=== PATIENT | male | born 1955 | race Caucasian/White ===

== ENCOUNTER 2017-03-30 01:19 | Emergency (ER) | payer OTHER ==
[~2017-03-30] VITALS: Ht 165.1 cm; Wt 80.5 kg
[2017-03-30 02:48] LABS: HEMATOCRIT 44.9 % (38.0-50.0); MCH 31.3 PG (29.0-34.0); MCHC 33.4 G/DL (30.0-36.0); MCV 93.5 FL (86-99); MEAN PLAT.VOLUME 10.1 uM^3 (9.0-12.4); PLATELET COUNT 275 K/uL (156-360); RBC DIS.WIDTH-CV 12.7 % (11.8-14.6); RBC DIS.WIDTH-SD 43.7 % (39-53); WHITE BLOOD COUNT 9.2 K/uL (4.1-10.2)
[2017-03-30 02:57] LABS: CHLORIDE 99 mEq/L (99-109); POTASSIUM 3.3 mEq/L (3.7-5.4); SODIUM 139 mEq/L (136-147)
[2017-03-30 02:59] LABS: GLUCOSE 126 mg/dL (70-99)
[2017-03-30 03:00] LABS: ANION GAP 12 MEQ/L (2-14)
[2017-03-30 03:01] LABS: TOTAL BILIRUBIN 0.6 mg/dL (0.0-1.0)
[2017-03-30 03:02] LABS: SERUM ETHYL ALCOHOL < 10 mg/dL
[2017-03-30 03:03] LABS: ALKALINE PHOSPHATASE 72 IU/L (3-129); GFR ESTIMATE (CALCULATED) > 59 mL/min/
[2017-03-30 03:04] LABS: UREA NITROGEN (BUN) 12 mg/dL (9-23)
[2017-03-30 03:06] LABS: LIPASE 17 U/L (1.0-51.0)
[2017-03-30 03:56] LABS: ADD MIUA? YES; BILIRUBIN NEGATIVE; BLOOD SMALL; COLOR YELLOW ((YELLOW)); GLUCOSE (STRIP) NEGATIVE; KETONES NEGATIVE; LEUKOCYTES NEGATIVE; NITRITE NEGATIVE; PROTEIN (STRIP) NEGATIVE; SPECIFIC GRAVITY 1.019 (1.000-1.030); UROBILINOGEN 0.2 MG/DL (0.2-1.0)
[2017-03-30 04:14] LABS: BACTERIA RARE /HPF; EPITHELIAL CELLS RARE /HPF; MUCUS 3+ /LPF; RED BLOOD CELLS 0-5 /HPF (0-5); UCUL ADDED? YES
[2017-03-30] MEDS ORDERED: BACTRIM,SEPT1 TABLET PO ×2 (04:33→10:55)
[2017-03-30 05:02] VITALS: BP 158/96
== END 2017-03-30 05:03 | disposition home or self-care (01) ==
LOC: EME 01:19
PROVIDERS: Emergency Medicine
DX: N39.0 Urinary tract infection, site not specified (principal); Z87.442 Personal history of urinary calculi; Z88.0 Allergy status to penicillin; F17.200 Nicotine dependence, unspecified, uncomplicated
CPT/HCPCS: 71020; 80053; 81003; 83690; 85027; 87086; 93005; 99281; 99285; G0480; J2405; J7030

== ENCOUNTER 2017-03-30 08:16 | Emergency (ER) | payer OTHER ==
[~2017-03-30] VITALS: Ht 165.1 cm; Wt 80.8 kg
[~2017-03-30 08:16] MED LIST: BACTRIM,SEPT1 TABLET PO
[2017-03-30 09:11] LABS: POINT-OF-CARE METER ID UU14100415
[2017-03-30 09:27] LABS: ADD MIUA? NO; BILIRUBIN NEGATIVE; BLOOD NEGATIVE; COLOR YELLOW ((YELLOW)); GLUCOSE (STRIP) NEGATIVE; KETONES NEGATIVE; LEUKOCYTES NEGATIVE; NITRITE NEGATIVE; PROTEIN (STRIP) NEGATIVE; SPECIFIC GRAVITY 1.017 (1.000-1.030); UCUL ADDED? NO; UROBILINOGEN 0.2 MG/DL (0.2-1.0)
[2017-03-30 09:39] LABS: ANION GAP 9 MEQ/L (2-14); CHLORIDE 102 MEQ/L (99-109); POTASSIUM 3.8 MEQ/L (3.7-5.4); SAMPLE HEMOLYSIS CHECK 0; SAMPLE ICTERIC CHECK 0; SAMPLE LIPEMIA CHECK 0; SODIUM 136 MEQ/L (136-147)
[2017-03-30 09:40] LABS: BASOPHIL COUNT 0.1 K/uL (0-0.1); EOSINOPHIL (%) 1.6 % (0-5); EOSINOPHIL COUNT 0.1 K/uL (0-0.3); HEMATOCRIT 43.3 % (38.0-50.0); IMMATURE GRANULOCYTE (%) 0.3 % (0.0-0.7); INSTRUMENT ABS NEUTROPHIL CT 5.4 K/uL; LYMPHOCYTE COUNT 1.6 K/uL (1.0-2.8); MCH 30.7 PG (29.0-34.0); MCV 92.9 FL (86-99); MEAN PLAT.VOLUME 10.1 uM^3 (9.0-12.4); MONOCYTE (%) 9.2 % (3-12); MONOCYTE COUNT 0.7 K/uL (0-0.8); NEUTROPHIL COUNT 5.4 K/uL (1.8-6.4); PLATELET COUNT 264 K/uL (156-360); RBC DIS.WIDTH-CV 12.8 % (11.8-14.6); RBC DIS.WIDTH-SD 43.8 % (39-53); RED BLOOD COUNT 4.66 M/uL (4.00-5.50)
[2017-03-30 09:44] LABS: GFR ESTIMATE (CALCULATED) > 59 mL/min/; GLUCOSE 155 mg/dL (70-99); UREA NITROGEN (BUN) 12 mg/dL (9-23)
[2017-03-30] MEDS ORDERED: BACTRIM,SEPT1 TABLET PO (10:55)
[2017-03-30 11:13] VITALS: BP 159/95
== END 2017-03-30 11:15 | disposition home or self-care (01) ==
LOC: EME 08:16
PROVIDERS: Emergency Medicine
DX: N39.0 Urinary tract infection, site not specified (principal); Z87.442 Personal history of urinary calculi; Z88.0 Allergy status to penicillin; F17.200 Nicotine dependence, unspecified, uncomplicated
CPT/HCPCS: 80048; 81003; 82948; 85025; 99281; 99284

== ENCOUNTER 2017-04-01 11:31 | Emergency (ER) | payer OTHER ==
[~2017-04-01] VITALS: Ht 165.1 cm; Wt 19.0 kg
[2017-04-01 13:03] LABS: ADD MIUA? NO; BILIRUBIN NEGATIVE; BLOOD NEGATIVE; COLOR YELLOW ((YELLOW)); GLUCOSE (STRIP) NEGATIVE; KETONES NEGATIVE; LEUKOCYTES NEGATIVE; NITRITE NEGATIVE; PROTEIN (STRIP) 30; SPECIFIC GRAVITY 1.018 (1.000-1.030); UCUL ADDED? NO; UROBILINOGEN 0.2 MG/DL (0.2-1.0)
[2017-04-01 13:15] LABS: HEMATOCRIT 44.2 % (38.0-50.0); MCH 30.9 PG (29.0-34.0); MCHC 33.3 G/DL (30.0-36.0); MCV 93.1 FL (86-99); PLATELET COUNT 272 K/uL (156-360); RBC DIS.WIDTH-CV 12.9 % (11.8-14.6); RBC DIS.WIDTH-SD 44.3 % (39-53); RED BLOOD COUNT 4.75 M/uL (4.00-5.50); WHITE BLOOD COUNT 7.3 K/uL (4.1-10.2)
[2017-04-01 13:24] LABS: CHLORIDE 104 mEq/L (99-109); SODIUM 142 mEq/L (136-147)
[2017-04-01 13:26] LABS: GLUCOSE 130 mg/dL (70-99)
[2017-04-01 13:27] LABS: ANION GAP 12 MEQ/L (2-14)
[2017-04-01 13:29] LABS: ALKALINE PHOSPHATASE 71 IU/L (3-129); TOTAL BILIRUBIN 0.4 mg/dL (0.0-1.0)
[2017-04-01 13:30] LABS: GFR ESTIMATE (CALCULATED) > 59 mL/min/
[2017-04-01 13:31] LABS: UREA NITROGEN (BUN) 13 mg/dL (9-23)
[2017-04-01 14:46] LABS: LIPASE 22 U/L (1.0-51.0)
[2017-04-01] MEDS ORDERED: ZOFRAN4 MG PO (16:31)
[2017-04-01 17:08] VITALS: BP 166/59
[2017-04-02] MEDS ORDERED: FLOMAX0.4 MG PO (06:44)
== END 2017-04-01 17:09 | disposition home or self-care (01) ==
LOC: EME 11:31
PROVIDERS: Physician Assistant
DX: R11.0 Nausea (principal); J44.9 Chronic obstructive pulmonary disease, unspecified; Z87.442 Personal history of urinary calculi; I10 Essential (primary) hypertension; F17.200 Nicotine dependence, unspecified, uncomplicated
CPT/HCPCS: 74022; 80053; 81003; 83605; 83690; 85027; 87040; 93005; 99281; 99284; J7030

== ENCOUNTER 2017-04-02 04:43 | Emergency (ER) | payer OTHER ==
[~2017-04-02] VITALS: Ht 165.1 cm; Wt 81.4 kg
[~2017-04-02 04:43] MED LIST changes: +ZOFRAN4 MG PO
[2017-04-02 05:34] LABS: CHLORIDE 99 mEq/L (99-109); POTASSIUM 3.3 mEq/L (3.7-5.4)
[2017-04-02 05:35] LABS: HEMATOCRIT 40.4 % (38.0-50.0); MCH 31.4 PG (29.0-34.0); MCHC 34.2 G/DL (30.0-36.0); MCV 91.8 FL (86-99); MEAN PLAT.VOLUME 10.3 uM^3 (9.0-12.4); PLATELET COUNT 253 K/uL (156-360); RBC DIS.WIDTH-CV 12.6 % (11.8-14.6); RBC DIS.WIDTH-SD 42.7 % (39-53); WHITE BLOOD COUNT 9.2 K/uL (4.1-10.2)
[2017-04-02 05:38] LABS: ANION GAP 11 MEQ/L (2-14)
[2017-04-02 05:40] LABS: ALKALINE PHOSPHATASE 63 IU/L (3-129); GFR ESTIMATE (CALCULATED) > 59 mL/min/
[2017-04-02 05:41] LABS: UREA NITROGEN (BUN) 10 mg/dL (9-23)
[2017-04-02 05:48] LABS: GLUCOSE 219 mg/dL (70-99); SODIUM 132 mEq/L (136-147); TOTAL BILIRUBIN 0.6 mg/dL (0.0-1.0)
[2017-04-02 06:17] LABS: CREATINE KINASE 124 IU/L (1-294); LIPASE 21 U/L (1.0-51.0)
[2017-04-02] MEDS ORDERED: FLOMAX0.4 MG PO (06:44)
[2017-04-02 06:52] VITALS: BP 150/87
== END 2017-04-02 06:53 | disposition home or self-care (01) ==
LOC: EME 04:43
DX: R33.9 Retention of urine, unspecified (principal); E87.1 Hypo-osmolality and hyponatremia; R11.0 Nausea; E27.8 Other specified disorders of adrenal gland; K76.0 Fatty (change of) liver, not elsewhere classified; Z87.442 Personal history of urinary calculi; F17.200 Nicotine dependence, unspecified, uncomplicated
CPT/HCPCS: 74176; 80053; 81003; 82550; 83690; 85027; 99281; 99284

== ENCOUNTER 2017-04-03 08:27 | Emergency (ER) | payer OTHER ==
[~2017-04-03] VITALS: Ht 165.1 cm; Wt 78.7 kg
[~2017-04-03 08:27] MED LIST changes: +FLOMAX0.4 MG PO
[2017-04-03 10:37] LABS: BASOPHIL COUNT 0.1 K/uL (0-0.1); EOSINOPHIL (%) 1.7 % (0-5); EOSINOPHIL COUNT 0.2 K/uL (0-0.3); HEMATOCRIT 45.7 % (38.0-50.0); IMMATURE GRANULOCYTE (%) 0.4 % (0.0-0.7); INSTRUMENT ABS NEUTROPHIL CT 6.8 K/uL; LYMPHOCYTE COUNT 3.6 K/uL (1.0-2.8); MCH 31.3 PG (29.0-34.0); MCHC 33.9 G/DL (30.0-36.0); MCV 92.3 FL (86-99); MEAN PLAT.VOLUME 10.9 uM^3 (9.0-12.4); MONOCYTE (%) 6.1 % (3-12); MONOCYTE COUNT 0.7 K/uL (0-0.8); NEUTROPHIL (%) 59.7 % (45-76); NEUTROPHIL COUNT 6.8 K/uL (1.8-6.4); PLATELET COUNT 272 K/uL (156-360); RBC DIS.WIDTH-CV 12.6 % (11.8-14.6); RBC DIS.WIDTH-SD 42.7 % (39-53); RED BLOOD COUNT 4.95 M/uL (4.00-5.50); WHITE BLOOD COUNT 11.4 K/uL (4.1-10.2)
[2017-04-03 10:44] LABS: CHLORIDE 97 mEq/L (99-109); POTASSIUM 3.3 mEq/L (3.7-5.4); SODIUM 137 mEq/L (136-147)
[2017-04-03 10:47] LABS: GLUCOSE 125 mg/dL (70-99)
[2017-04-03 10:48] LABS: ANION GAP 14 MEQ/L (2-14)
[2017-04-03 10:50] LABS: ALKALINE PHOSPHATASE 76 IU/L (3-129); GFR ESTIMATE (CALCULATED) > 59 mL/min/; TOTAL BILIRUBIN 0.9 mg/dL (0.0-1.0)
[2017-04-03 10:51] LABS: UREA NITROGEN (BUN) 13 mg/dL (9-23)
[2017-04-03 11:43] VITALS: BP 160/99
== END 2017-04-03 11:58 | disposition home or self-care (01) ==
LOC: EME 08:27
PROVIDERS: Emergency Medicine
DX: E87.6 Hypokalemia (principal); I10 Essential (primary) hypertension; M79.1 Myalgia; J44.9 Chronic obstructive pulmonary disease, unspecified; Z87.442 Personal history of urinary calculi; F17.200 Nicotine dependence, unspecified, uncomplicated
CPT/HCPCS: 71020; 80053; 85025; 99281; 99283

== ENCOUNTER 2017-11-24 15:19 | Emergency (ER) | payer OTHER ==
[~2017-11-24] VITALS: Ht 167.6 cm; Wt 81.8 kg
[2017-11-24 19:35] VITALS: BP 135/72
== END 2017-11-24 19:35 | disposition home or self-care (01) ==
LOC: EME 15:19
DX: F10.129 Alcohol abuse with intoxication, unspecified (principal); Z04.6 Encounter for general psychiatric examination, requested by authority; J44.9 Chronic obstructive pulmonary disease, unspecified; F41.9 Anxiety disorder, unspecified; Z87.442 Personal history of urinary calculi; Z91.041 Radiographic dye allergy status; Z88.0 Allergy status to penicillin; F17.200 Nicotine dependence, unspecified, uncomplicated
CPT/HCPCS: 99281; 99284

== ENCOUNTER 2017-12-30 10:55 | Emergency (ER) | payer OTHER ==
[~2017-12-30] VITALS: Ht 167.6 cm; Wt 80.2 kg
[2017-12-30 11:02] VITALS: BP 133/120
== END 2017-12-30 13:06 | disposition left against medical advice (07) ==
LOC: EME 10:55
DX: E86.0 Dehydration (principal); R06.02 Shortness of breath; R11.0 Nausea; R52 Pain, unspecified; Z53.21 Procedure and treatment not carried out due to patient leaving prior to being seen by health care provider
CPT/HCPCS: 99281; 99284

== ENCOUNTER 2018-01-06 20:03 | Emergency (ER) | payer OTHER ==
[~2018-01-06] VITALS: Ht 167.6 cm; Wt 78.9 kg
[2018-01-06 20:15] LABS: BASE EXCESS -0.4 mEq/L (-3 to +3); BICARBONATE 24.8 mEq/L (22-26); CARBOXY HGB 6.1 % (0-5); METHEMOGLOBIN 0.9 % (0-1.5); PCO2 42 mm Hg (35-45); PO2 63 mm Hg (80-100); pH 7.38 (7.35-7.45)
[2018-01-06 20:16] LABS: COMMENTS - BLOOD GASES A+C+; DEVICE NC; O2 FLOW 2 L/MIN; SITE LR
[2018-01-06 20:17] LABS: HEMATOCRIT 34.6 % (38.0-50.0); HEMOGLOBIN 11.8 G/DL (12.5-16.6); MCH 33.2 PG (29.0-34.0); MCHC 34.1 G/DL (30.0-36.0); MCV 97.5 FL (86-99); PLATELET COUNT 209 K/uL (156-360); RBC DIS.WIDTH-CV 12.5 % (11.8-14.6); RBC DIS.WIDTH-SD 45.2 % (39-53); RED BLOOD COUNT 3.55 M/uL (4.00-5.50); WHITE BLOOD COUNT 9.2 K/uL (4.1-10.2)
[2018-01-06 20:26] LABS: ALBUMIN 3.5 g/dL (3.2-4.8); CHLORIDE 107 mEq/L (99-109); POTASSIUM 4.5 mEq/L (3.7-5.4); SODIUM 142 mEq/L (136-147)
[2018-01-06 20:29] LABS: GLUCOSE 90 mg/dL (70-99); TOTAL PROTEIN 5.7 g/dL (6.4-8.3)
[2018-01-06 20:31] LABS: TOTAL BILIRUBIN 0.4 mg/dL (0.0-1.0)
[2018-01-06 20:32] LABS: ALKALINE PHOSPHATASE 48 IU/L (3-129); SERUM ETHYL ALCOHOL 59 mg/dL
[2018-01-06 20:33] LABS: CREATININE 1.6 mg/dL (0.6-1.3); GFR ESTIMATE (CALCULATED) 47 mL/min/ (58.99-99999)
[2018-01-06 20:34] LABS: AST (GOT) 24 IU/L (2-34); UREA NITROGEN (BUN) 29 mg/dL (9-23)
[2018-01-06 20:35] LABS: ALT (GPT) 40 IU/L (3-49)
[2018-01-06 20:36] LABS: LIPASE 15 U/L (1.0-51.0)
[2018-01-06 21:41] LABS: AMPHETAMINE NEGATIVE (500 ng/mL); BARBITURATES NEGATIVE (200 ng/mL); BENZODIAZEPINES PRESUMPTIVE POSITIVE (150 ng/mL); BUPRENORPHINE PRESUMPTIVE POSITIVE (10 ng/mL); COCAINE NEGATIVE (150 ng/mL); METHADONE NEGATIVE (200 ng/mL); METHAMPHETAMINE NEGATIVE (500 ng/mL); OPIATES (MORPHINE) NEGATIVE (100 ng/mL); OXYCODONE NEGATIVE (100 ng/mL); PHENCYCLIDINE NEGATIVE (25 ng/mL); PROPOXYPHENE NEGATIVE (300 ng/mL); THC CANNABINOIDS PRESUMPTIVE POSITIVE (50 ng/mL); TRICYCLIC ANTIDEPRESSANTS NEGATIVE (300 ng/mL)
[2018-01-06 21:45] LABS: BASE EXCESS -3.7 mEq/L (-3 to +3); BICARBONATE 24.4 mEq/L (22-26); CARBOXY HGB 4.2 % (0-5)
[2018-01-06 21:46] LABS: APPEARANCE CLEAR ((CLEAR)); BILIRUBIN NEGATIVE; BLOOD SMALL; COLOR YELLOW ((YELLOW)); GLUCOSE (STRIP) NEGATIVE; KETONES 5; LEUKOCYTES NEGATIVE; NITRITE NEGATIVE; PROTEIN (STRIP) NEGATIVE; SPECIFIC GRAVITY 1.019 (1.000-1.030); UROBILINOGEN 0.2 MG/DL (0.2-1.0)
[2018-01-06 21:46] LABS: COMMENTS - BLOOD GASES A+C+; PCO2 57 mm Hg (35-45); PO2 217 mm Hg (80-100); SITE RR; pH 7.24 (7.35-7.45)
[2018-01-06 21:47] LABS: DEVICE VENT; FI02 80 %; MECHANICAL RATE 14 resp/min; MODE A/C; PEEP 5 CM/H20; TIDAL VOLUME 450 ML; TOTAL RESP RATE 14 resp/min
[2018-01-06 21:47] LABS: TROP-I INTERPRETATION NEGATIVE; TROPONIN-I 0.02 ng/mL (0.0-0.30)
[2018-01-06 22:08] LABS: BACTERIA NONE SEEN /HPF; EPITHELIAL CELLS NONE SEEN /HPF; MUCUS TRACE /LPF; UCUL ADDED? NO; WHITE BLOOD CELLS 0-5 /HPF (0-5)
[2018-01-06 22:20] LABS: BENZODIAZEPINES, URINE SCREEN POSITIVE (200 ng/mL)
[2018-01-07 00:19] VITALS: BP 87/52
== END 2018-01-07 00:22 | disposition designated cancer center or children's hospital, planned readmission (85) ==
LOC: EME → EDBD 20:03 → TRA 20:03
PROVIDERS: Emergency Medicine
DX: R09.02 Hypoxemia (principal); R06.03 Acute respiratory distress; J70.5 Respiratory conditions due to smoke inhalation; T22.311A Burn of third degree of right forearm, initial encounter; T31.0 Burns involving less than 10% of body surface; X00.0XXA Exposure to flames in uncontrolled fire in building or structure, initial encounter; X00.1XXA Exposure to smoke in uncontrolled fire in building or structure, initial encounter; Y92.000 Kitchen of unspecified non-institutional (private) residence as the place of occurrence of the external cause; J44.9 Chronic obstructive pulmonary disease, unspecified; F41.9 Anxiety disorder, unspecified; F17.200 Nicotine dependence, unspecified, uncomplicated; Z87.442 Personal history of urinary calculi; Z88.0 Allergy status to penicillin; Z91.041 Radiographic dye allergy status
CPT/HCPCS: 36600; 71045; 80053; 81003; 82803; 83690; 84484; 84999; 85027; 93005; 94002; 94003; 94640; 99281; 99285; G0480; J2704; J7120